=== PATIENT | male | born 1980 | race Two or more races ===

== ENCOUNTER 2022-03-29 20:34 | Emergency (ER) | payer OTHER ==
[~2022-03-29] VITALS: Ht 185.4 cm; Wt 83.9 kg
== END 2022-03-29 22:20 | disposition home or self-care (01) ==
LOC: ER 20:34
DX: A91 Dengue hemorrhagic fever (principal); Z20.822 Contact with and (suspected) exposure to COVID-19; Z88.0 Allergy status to penicillin

== ENCOUNTER 2022-04-25 11:49 | Emergency (ER) | payer OTHER ==
[~2022-04-25] VITALS: Ht 188 cm; Wt 77.1 kg
== END 2022-04-25 16:34 | disposition home or self-care (01) ==
LOC: ER 11:49
DX: K29.70 Gastritis, unspecified, without bleeding (principal); Z88.0 Allergy status to penicillin

== ENCOUNTER → 2022-04-25 | Emergency (ER) | payer OTHER | END | disposition home or self-care (01) | LOC: ER 11:35 | DX: K29.70 Gastritis, unspecified, without bleeding (principal); Z88.0 Allergy status to penicillin ==

== ENCOUNTER 2023-05-14 11:50 | Emergency (ER) | payer OTHER ==
[~2023-05-14] VITALS: Ht 182.9 cm; Wt 77.1 kg
[2023-05-14] MEDS ORDERED: METHYLPREDNISOLONE SOD SUCC 125 MG VIAL IV STA (13:44)
[2023-05-14] MEDS ORDERED: levoFLOXacin IN DEXTROSE 5 % 5 MG/ML PIGGYBAG IV STA (13:45)
[2023-05-14] MEDS ORDERED: LEVALBUTEROL HCL 1.25 MG/3 ML SOLUTION IH SCH (13:45)
[2023-05-14] MEDS ORDERED: BUDESONIDE 0.5 MG/2 ML AMPUL.NEB IH STA (13:45)
[2023-05-14] MEDS ORDERED: IPRATROPIUM BROMIDE 0.5 MG/2.5 ML AMPUL.NEB IH SCH (14:00)
[2023-05-14 14:20] LABS: HEMATOCRIT 34.7 % (39.0-48.0); HEMOGLOBIN 11.7 g/dL (13-16.00); MEAN CELL VOLUME 78.9 fL (80.0-100.00); MEAN CORPUSCULAR HEMOGLOBIN 26.7 pg (27.00-32.0); MEAN CORPUSCULAR HGB CONC 33.8 g/dl (32.0-36.0); PLATELET COUNT 143 K/uL (150-450); RED CELL DISTRIBUTION WIDTH 14.8 % (11.5-14.5)
[2023-05-14 15:17] LABS: ABG PH 7.448 (7.35-7.45)
[2023-05-14 15:18] LABS: ABG PO2 92.9 mmHg (80-100); ABG pCO2 38.8 mmHg (35-45); BASE EXCESS 2.2 mmol/l; BICARBONATE 26.2 mmol/l (23-25); SaO2 97.6 %; Tco2 27.4 mmol/l; allen test SATISFACTORY; o2 21 %; puncture site RADIAL RIGHT
== END 2023-05-14 15:02 | disposition home or self-care (01) ==
LOC: ER 11:50
PROVIDERS: General Practice
DX: J22 Unspecified acute lower respiratory infection (principal); Z88.0 Allergy status to penicillin; J40 Bronchitis, not specified as acute or chronic; Z20.822 Contact with and (suspected) exposure to COVID-19; J18.8 Other pneumonia, unspecified organism

== ENCOUNTER 2024-07-03 22:23 | Inpatient (IN) | payer OTHER ==
[~2024-07-03] VITALS: Ht 188 cm; Wt 89.4 kg
[2024-07-03] MEDS ORDERED: KETOROLAC TROMETHAMINE 30 MG VIAL IV ONE (23:45)
[2024-07-03] MEDS ORDERED: 0.9 % SODIUM CHLORIDE 1,000 ML IV SCH (23:45)
[2024-07-03] MEDS ORDERED: ONDANSETRON HCL 2 MG/ML VIAL IV ONE (23:45)
[2024-07-03] MEDS ORDERED: FAMOTIDINE/PF 20 MG in 0.9 % SODIUM CHLORIDE 8 ML IV PUSH STA (23:49)
[2024-07-04] MEDS ORDERED: ONDANSETRON HCL 2 MG/ML VIAL ONE (00:18)
[2024-07-04] MEDS ORDERED: KETOROLAC TROMETHAMINE 30 MG VIAL ONE (00:18)
[2024-07-04] MEDS ORDERED: FAMOTIDINE/PF 20 MG/2 ML VIAL ONE ×2 (00:19→16:03)
[2024-07-04 00:56] LABS: BASO % 0.1 % (0.1-1.2); EOS # 0.07 (0.04-0.54); HEMATOCRIT 40.1 % (40.1-51.0); LYMPH # 1.02 (1.18-3.74); LYMPH % 14.4 % (19.3-53.1); MEAN CORPUSCULAR HEMOGLOBIN 25.8 pg (25.6-32.2); MONO # 0.34 (0.24-0.82); MONO % 4.8 % (4.7-12.5); NEUT # 5.64 (1.56-6.13); NEUT % 79.6 % (34.0-71.1); PLATELET COUNT 162 K/uL (163-369); RED BLOOD COUNT 5.04 M/uL (4.63-6.08); RED CELL DISTRIBUTION WIDTH 14.5 % (11.6-14.4)
[2024-07-04 01:27] LABS: ALBUMIN 3.9 gm/dL (3.4-5.0); BILIRUBIN TOTAL 0.57 mg/dL (0.3-1.2); BILIRUBIN,CONJUGATED 0.17 mg/dL (0.0-0.2); BILIRUBIN,UNCONJUGATED 0.4 mg/dL (0.0-0.6); CALCIUM 8.6 mg/dL (8.5-10.1); CREATININE SERUM 0.83 mg/dL (0.70-1.30); GFR 101.12; POTASSIUM 3.79 mEq/L (3.5-5.1); TOTAL PROTEIN 7.9 gm/dL (6.4-8.2)
[2024-07-04] MEDS ORDERED: LACTOBACILLUS ACIDOPHILUS 1 CAP CAP PO STA (04:06)
[2024-07-04] MEDS ORDERED: LACTOBACILLUS ACIDOPHILUS 1 CAP CAP PO ONE (04:35)
[2024-07-04] MEDS ORDERED: CIPROFLOXACIN IN 5 % DEXTROSE 400 MG/200 ML PIGGYBAG IV ONE (16:03)
[2024-07-04] MEDS ORDERED: CIPROFLOXACIN IN 5 % DEXTROSE 200 ML IV SCH (16:04)
[2024-07-04] MEDS ORDERED: FAMOTIDINE/PF 20 MG in 0.9 % SODIUM CHLORIDE 8 ML IV PUSH STA (16:05)
[2024-07-04 16:29] LABS: EOS # 0.22 (0.04-0.54); EOS % 3.9 % (0.7-7.0); HEMATOCRIT 36.3 % (40.1-51.0); HEMOGLOBIN 11.8 g/dL (13.7-17.5); LYMPH # 1.44 (1.18-3.74); LYMPH % 25.8 % (19.3-53.1); MONO # 0.42 (0.24-0.82); MONO % 7.5 % (4.7-12.5); NEUT % 62.6 % (34.0-71.1); PLATELET COUNT 136 K/uL (163-369); RED BLOOD COUNT 4.53 M/uL (4.63-6.08); RED CELL DISTRIBUTION WIDTH 14.3 % (11.6-14.4)
[2024-07-04 16:57] LABS: INR 1.05; PARTIAL THROMBOPLASTIN TIME 31.6 SECONDS (22.0-34.0); PROTHROMBIN TIME 11.4 SECONDS (9.0-11.5)
[2024-07-04] MEDS ORDERED: METRONIDAZOLE/SODIUM CHLORIDE 100 ML IV SCH (17:00)
[2024-07-04 17:01] LABS: ALBUMIN 3.3 gm/dL (3.4-5.0); BILIRUBIN TOTAL 0.57 mg/dL (0.3-1.2); CALCIUM 7.8 mg/dL (8.5-10.1); CREATININE SERUM 0.69 mg/dL (0.70-1.30); GFR 125.14; GLOBULINA 3.3 G/DL (2.4-3.5); POTASSIUM 3.7 mEq/L (3.5-5.1); TOTAL PROTEIN 6.6 gm/dL (6.4-8.2)
[2024-07-04 19:07] VITALS: BP 100/56; O2SAT 98
[2024-07-04 19:25] VITALS: BP 100/56
[2024-07-04] MEDS ORDERED: ACETAMINOPHEN 500 MG GEL..CAP PO PRN (19:30)
[2024-07-04] MEDS ORDERED: MORPHINE SULFATE 4 MG/ML CARTRIDGE IV PRN (19:30)
[2024-07-04] MEDS ORDERED: 0.9 % SODIUM CHLORIDE 1,000 ML IV SCH (19:30)
[2024-07-04] MEDS ORDERED: MORPHINE SULFATE 4 MG/ML CARTRIDGE IV ONE (19:30)
[2024-07-04] MEDS ORDERED: ONDANSETRON HCL 4 MG in 0.9 % SODIUM CHLORIDE 50 ML IV PRN (19:30)
[2024-07-04 23:05] LABS: PH,URINE 5.5 (5.0-8.0); URINE APPEARANCE Clear; URINE BILIRRUBIN Negative (NEGATIVE); URINE BLOOD Negative; URINE COLOR Yellow; URINE GLUCOSE Negative (NEGATIVE); URINE LEUKOCYTE Negative; URINE NITRATE Negative; URINE PROTEIN Negative (NEGATIVE)
[2024-07-04 23:09] LABS: URINE BACTERIA 4.8 uL (0.0-1933); URINE RBC 2.5 uL (0.0-20.8); URINE WBC 9.6 uL (0.0-23.2)
[2024-07-04 23:27] LABS: URINE KETONE 40 (NEGATIVE)
[2024-07-05 02:00] VITALS: BP 114/65; O2SAT 99
[2024-07-05 08:00] VITALS: BP 116/73; O2SAT 99
[2024-07-05 08:42] LABS: BASO % 0.2 % (0.1-1.2); EOS # 0.24 (0.04-0.54); EOS % 3.6 % (0.7-7.0); HEMATOCRIT 36.6 % (40.1-51.0); HEMOGLOBIN 11.8 g/dL (13.7-17.5); LYMPH # 1.19 (1.18-3.74); MEAN CORPUSCULAR HEMOGLOBIN 25.9 pg (25.6-32.2); MONO # 0.47 (0.24-0.82); MONO % 7.1 % (4.7-12.5); NEUT # 4.69 (1.56-6.13); NEUT % 70.9 % (34.0-71.1); PLATELET COUNT 135 K/uL (163-369); RED BLOOD COUNT 4.55 M/uL (4.63-6.08); RED CELL DISTRIBUTION WIDTH 14.4 % (11.6-14.4)
[2024-07-05] MEDS ORDERED: FAMOTIDINE/PF 20 MG in 0.9 % SODIUM CHLORIDE 8 ML IV PUSH SCH (09:00)
[2024-07-05 16:19] VITALS: BP 118/55; O2SAT 99
[2024-07-06 00:27] VITALS: BP 127/75; O2SAT 99
[2024-07-06 08:13] VITALS: BP 129/67; O2SAT 99
[2024-07-06 15:00] VITALS: BP 135/72; O2SAT 96
[2024-07-06] MEDS ORDERED: METOCLOPRAMIDE HCL 5 MG/ML VIAL IV SCH (17:00)
[2024-07-07 00:14] VITALS: BP 122/72; O2SAT 99
[2024-07-07 07:49] VITALS: BP 130/58; O2SAT 98
[2024-07-07] MEDS ORDERED: DIATRIZOATE MEGLUMINE, SODIUM 30 ML BOTTLE PO NR (11:30)
[2024-07-07 15:30] VITALS: BP 134/77; O2SAT 96
[2024-07-08 00:37] VITALS: BP 125/68; O2SAT 95
[2024-07-08 07:49] LABS: BASO % 0.3 % (0.1-1.2); EOS # 0.18 (0.04-0.54); EOS % 2.9 % (0.7-7.0); HEMATOCRIT 33.4 % (40.1-51.0); HEMOGLOBIN 11.1 g/dL (13.7-17.5); LYMPH # 1.47 (1.18-3.74); LYMPH % 23.7 % (19.3-53.1); MEAN CORPUSCULAR HEMOGLOBIN 26.3 pg (25.6-32.2); MONO # 0.43 (0.24-0.82); MONO % 6.9 % (4.7-12.5); NEUT # 4.07 (1.56-6.13); NEUT % 65.9 % (34.0-71.1); PLATELET COUNT 156 K/uL (163-369); RED BLOOD COUNT 4.22 M/uL (4.63-6.08)
[2024-07-08 08:22] LABS: ALBUMIN 3.1 gm/dL (3.4-5.0); BILIRUBIN TOTAL 0.54 mg/dL (0.3-1.2); CALCIUM 8.4 mg/dL (8.5-10.1); CREATININE SERUM 0.61 mg/dL (0.70-1.30); GFR 144.27; GLOBULINA 3.3 G/DL (2.4-3.5); POTASSIUM 3.59 mEq/L (3.5-5.1); TOTAL PROTEIN 6.4 gm/dL (6.4-8.2)
[2024-07-08 08:47] VITALS: BP 113/65; O2SAT 98
[2024-07-08 16:00] VITALS: BP 129/78; O2SAT 100
[2024-07-09 00:23] VITALS: BP 110/73; O2SAT 100
[2024-07-09 08:00] VITALS: BP 117/58; O2SAT 98
[2024-07-09 16:00] VITALS: BP 124/76; O2SAT 99
== END 2024-07-09 17:00 | disposition home or self-care (01) | DRG 390 ==
LOC: ER 23:15 → SURH 07-04 19:49
PROVIDERS: General Practice; Internal Medicine; ADMIT Student in an Organized Health Care Education/Training Program; ATTEND Student in an Organized Health Care Education/Training Program
PROC: BW21YZZ Computerized Tomography (CT Scan) of Abdomen and Pelvis using Other Contrast (ICD-10-PCS; 2024-07-03)
PROC: 0D9670Z Drainage of Stomach with Drainage Device, Via Natural or Artificial Opening (ICD-10-PCS; principal; 2024-07-04)
PROC: BW21YZZ Computerized Tomography (CT Scan) of Abdomen and Pelvis using Other Contrast (ICD-10-PCS; 2024-07-07)
DX: K56.600 Partial intestinal obstruction, unspecified as to cause (principal); K52.9 Noninfective gastroenteritis and colitis, unspecified; D64.89 Other specified anemias; Z88.0 Allergy status to penicillin